=== PATIENT | female | born 1985 | race Caucasian/White ===

== ENCOUNTER 2016-08-25 02:17 | Emergency (ER) | payer OTHER ==
[~2016-08-25] VITALS: Ht 152.4 cm; Wt 55.3 kg
[~2016-08-25 02:17] MED LIST: AUGMENTIN 875 M1 TAB PO; PREDNISONE10 MG PO; TESSALON PERLE100 MG PO; VISTARIL25 MG PO
[2016-08-25 02:38] VITALS: BP 140/81
--- NOTE | 2016-08-25 02:41 | ED INFLUENZA/URI COMPLAINT ---
History of Present Illness General Chief Complaint: Ear Complaints Stated Complaint: BILAT EAR PAIN Source: patient Exam Limitations: no limitations Vital Signs & Intake/Output Vital Signs & Intake/Output Vital Signs Date Time Temp Pulse Resp B/P Pulse O2 O2 Flow FiO2 Ox Delivery Rate 08/25 0238 97.5 86 16 140/81 100 Room Air Room Air Allergies Coded Allergies: cat dander (CONJUCTIVAL SWELLING 09/19/15) Reconcile Medications AMOXICILLIN/POTASSIUM CLAV (Augmentin 875-125 Tablet) 875 MG/125 MG TAB 1 TAB PO BID OTITIS MEDIA Amoxicillin/Potassium Clav (Augmentin 875-125 Tablet) 875 MG-125 MG TABLET 1 TAB PO BID ear infection Benzonatate (Tessalon Perle) 100 MG SGL 1-2 TAB PO Q8P PRN COUGH Hydroxyzine Pamoate (Vistaril) 25 MG CAP 1 TAB PO Q6P PRN ITCH Ibuprofen 600 MG TABLET 1 TAB PO TID PRN pain with food Prednisone 10 MG TAB 0 TAB PO DAILY CONTACT DERMITIS TAKE 4 PILLS A DAY FOR 3 DAYS THEN TAKE 3 PILLS A DAY FOR 3 DASY THEN TAKE 2 PILLS A DAY FOR 3 DAYS THEN TAKE 1 PILL A DAY FOR 3 DAYS Triage Note: 30YO FEMALE TO TRIAGE W/CO BILAT EAR PAIN X 2 D Triage Nurses Notes Reviewed? yes Onset: Gradual Duration: day(s): Timing: recent history Severity: moderate Prior Episodes/Possible Cause: occassional episodes Modifying Factors: Improves With: rest. Associated Symptoms: ear pain was sinus congestion HPI: 30-year-old woman, history of cigarette smoking, presents with bilateral ear pain for the past 2 days. She notes also sinus congestion, sneezing, coughing, mild sore throat. She has no fever, shortness of breath, wheezing. She is otherwise well and has no other concerns. Past History Medical History Any Pertinent Medical History? see below for history Respiratory: asthma Psychiatric: anxiety Surgical History Surgical History: non-contributory Psychosocial History Who do you live with Spouse What is your primary language Eritrean Family History Hx Contributory? No Review of Systems Review of Systems Constitutional: Reports: no symptoms. EENTM: Reports: no symptoms. Respiratory: Reports: no symptoms. Cardiovascular: Reports: no symptoms. GI: Reports: no symptoms. Genitourinary: Reports: no symptoms. Musculoskeletal: Reports: no symptoms. Skin: Reports: no symptoms. Neurological/Psychological: Reports: no symptoms. Hematologic/Endocrine: Reports: no symptoms. Immunologic/Allergic: Reports: no symptoms. All Other Systems: Reviewed and Negative Physical Exam Physical Exam General Appearance: well developed/nourished, mild distress Head: atraumatic, normal appearance Eyes: Bilateral: normal appearance. Ears, Nose, Throat: nasal congestion, nasal drainage, pharyngeal erythema, mild erythema behind both tympanic membranes. Neck: normal inspection, supple, full range of motion Respiratory: normal breath sounds, chest non-tender, no respiratory distress, quiet respiration, lungs clear Cardiovascular: regular rate/rhythm Gastrointestinal: normal bowel sounds Back: normal inspection Extremities: normal inspection Neurologic/Psych: no motor/sensory deficits, awake, alert, oriented x 3 Skin: intact, normal color, warm/dry Core Measures Severe Sepsis Present: No Septic Shock Present: No Progress Differential Diagnosis: otitis, pharyngitis, sinusitis Plan of Care: Prescription for Augmentin and ibuprofen given. I also advised a trial of Afrin , hot steamy shower, and antihistamines. Close follow-up encouraged. Initial ED EKG: none Departure Departure Disposition: HOME OR SELF CARE Condition: Stable Clinical Impression Primary Impression: Bilateral otitis media Referrals: HAIDER HAAS DO (PCP/Family) Departure Forms: Customer Survey General Discharge Information Prescriptions: Current Visit Scripts Amoxicillin/Potassium Clav (Augmentin 875-125 Tablet) 1 TAB PO BID #20 TAB Ibuprofen 1 TAB PO TID PRN pain #30 TAB with food
[2016-08-25] MEDS ORDERED: IBUPROFEN600 M1 PO (02:42)
[2016-08-25] MEDS ORDERED: AUGMENTIN 875-1 EACH PO (02:42)
== END 2016-08-25 02:51 ==
LOC: ERH 02:17
DX: H66.93 Otitis media, unspecified, bilateral (principal)

== ENCOUNTER 2017-12-04 22:59 | Observation (INO) | payer OTHER ==
[~2017-12-04] VITALS: Ht 170.2 cm; Wt 68.0 kg
[~2017-12-04 22:59] MED LIST changes: +AUGMENTIN 875-1 EACH PO; +IBUPROFEN600 M1 PO
--- NOTE | 2017-12-04 23:13 | ED GI/GU/ABDOMINAL COMPLAINT ---
See Addendum History of Present Illness General Chief Complaint: Female Urogenital Problems Stated Complaint: HEAVY VAGINAL BLEEDING,MEDICAL 2WKS AGO Source: patient, family Exam Limitations: no limitations Vital Signs & Intake/Output Vital Signs & Intake/Output Vital Signs Date Time Temp Pulse Resp B/P B/P Pulse O2 O2 Flow FiO2 Mean Ox Delivery Rate 12/04 2320 87 147/81 12/04 2307 96.2 86 16 145/91 99 Room Air Allergies Coded Allergies: cat dander (CONJUCTIVAL SWELLING 09/19/15) Reconcile Medications AMOXICILLIN/POTASSIUM CLAV (Augmentin 875-125 Tablet) 875 MG/125 MG TAB 1 TAB PO BID OTITIS MEDIA Amoxicillin/Potassium Clav (Augmentin 875-125 Tablet) 875 MG-125 MG TABLET 1 TAB PO BID ear infection Benzonatate (Tessalon Perle) 100 MG SGL 1-2 TAB PO Q8P PRN COUGH Hydroxyzine Pamoate (Vistaril) 25 MG CAP 1 TAB PO Q6P PRN ITCH Ibuprofen 600 MG TABLET 1 TAB PO TID PRN pain with food Prednisone 10 MG TAB 0 TAB PO DAILY CONTACT DERMITIS TAKE 4 PILLS A DAY FOR 3 DAYS THEN TAKE 3 PILLS A DAY FOR 3 DASY THEN TAKE 2 PILLS A DAY FOR 3 DAYS THEN TAKE 1 PILL A DAY FOR 3 DAYS Triage Note: PER PT 2 WEEKS AGO CO HEAVY BLEEDING SINCE YESTERDAY, REPORTS WAS BLEEDING THEN DOWN TO SPOTTING 2 DAYS AGO BUT NOW HEAVY Triage Nurses Notes Reviewed? yes ? N Is pt currently ? No HPI: Patient had a medical 2 weeks ago. Patient states that she received some pills at [facility]. Since then she has been having occasional spotting and slight pelvic cramps. Yesterday she began having vaginal bleeding. The bleeding increased over the day today. Today she has gone through 7 pads and has gone through one pad in the past 2 hours. Patient now feeling slightly lightheaded when she stands up. Patient continues to have pelvic cramps and at their worst a 7 out of 10 however currently there are 3 out of 10. Past History Travel History Traveled to [place] past 21 day No Medical History Any Pertinent Medical History? see below for history Neurological: NONE EENT: NONE Cardiovascular: NONE Respiratory: asthma Gastrointestinal: NONE Hepatic: NONE Renal: NONE Musculoskeletal: NONE Psychiatric: anxiety Endocrine: NONE Surgical History Surgical History: non-contributory Psychosocial History Who do you live with Spouse What is your primary language Polish Tobacco Use: Current Daily Use Daily Tobacco Use Amount/Type: => 5 Cigarettes daily ETOH Use: occasional use Illicit Drug Use: denies illicit drug use Family History Hx Contributory? No Review of Systems Review of Systems Constitutional: Reports: no symptoms. EENTM: Reports: no symptoms. Respiratory: Reports: no symptoms. Cardiovascular: Reports: no symptoms. GI: Reports: see HPI. Genitourinary: Reports: see HPI. Musculoskeletal: Reports: no symptoms. Skin: Reports: no symptoms. Neurological/Psychological: Reports: no symptoms. Hematologic/Endocrine: Reports: no symptoms. Immunologic/Allergic: Reports: no symptoms. All Other Systems: Reviewed and Negative Physical Exam Physical Exam General Appearance: well developed/nourished, alert, awake, anxious, mild distress Head: atraumatic, normal appearance Eyes: Bilateral: PERRL, EOMI. Ears, Nose, Throat, Mouth: hearing grossly normal, moist mucous membrane Neck: normal inspection, supple, full range of motion Respiratory: normal breath sounds, chest non-tender, no respiratory distress, lungs clear Cardiovascular: regular rate/rhythm, normal peripheral pulses Gastrointestinal: normal bowel sounds, soft, non-tender, no organomegaly Back: normal inspection, normal range of motion Extremities: normal range of motion Neurologic/Psych: no motor/sensory deficits, awake, alert, oriented x 3, normal gait, normal mood/affect Skin: intact, normal color, warm/dry Core Measures ACS in differential dx? No Sepsis Present: No Sepsis Focused Exam Completed? No Progress Differential Diagnosis: RETAINED PRODUCTS, PASSAGE OF PRODUCTS OF CONCEPTION Plan of Care: Orders Procedure Date/time Status URINALYSIS 12/04 2322 Complete MISTAKE 12/04 2309 Active HUMAN BETA HCG SCREEN 12/04 230 Active COMPREHENSIVE METABOLIC PANEL 12/04 2309 Active CBC WITHOUT DIFFERENTIAL 12/04 230 Complete Current Medications Sig/Jayda Start time Last Medication Dose Stop Time Status Admin Sodium Chloride 1,000 ML BOLUS ONE 12/04 2345 UNVr (Normal Saline 0.9%) 12/05 0044 Sodium Chloride 1,000 ML BOLUS ONE 12/04 2315 UNVr 12/04 (Normal Saline 0.9%) 12/05 0014 2347 Laboratory Tests 12/04/17 2345: Sodium Pending, Potassium Pending, Chloride Pending, Carbon Dioxide Pending, Anion Gap Pending, BUN Pending, Creatinine Pending, BUN/Creatinine Ratio Pending , Glucose Pending, Calcium Pending, Total Bilirubin Pending, AST Pending, ALT Pending, Alkaline Phosphatase Pending, Total Protein Pending, Albumin Pending, Globulin Pending, Albumin/Globulin Ratio Pending, Total Beta HCG Pending, CBC w Diff NO MAN DIFF REQ, RBC 4.22, MCV 90.8, MCH 30.8, MCHC 33.9, RDW 13.6, MPV 7.4 , Gran % 49.9, Lymphocytes % 32.5, Monocytes % 9.6 H, Eosinophils % 7.4 H, Basophils % 0.6, Absolute Granulocytes 4.2, Absolute Lymphocytes 2.7, Absolute Monocytes 0.8 H, Absolute Eosinophils 0.6, Absolute Basophils 0.1 12/04/17 2325: Urine Color BLDY H, Urine Clarity CLDY H, Urine pH 6.5, Ur Specific [place] 1.010, Urine Protein 100 H, Urine Ketones NEG, Urine Nitrite POS H, Urine Bilirubin NEG, Urine Urobilinogen 0.2, Ur Leukocyte Esterase SMALL H, Ur Microscopic SEDIMENT EXAMINED, Urine RBC PACKD H, Urine WBC 1-3 H, Ur Epithelial Cells MOD H, Urine Bacteria MOD H, Urine Hemoglobin LARGE H, Urine Glucose NEG Initial ED EKG: none Hand-Off Endorsed To: Rajeev Gomez MD Endorsed Time: 11 Pending: labs Comments: No changes with blood pressure between laying sitting and standing however the pulse did increase from 87 up to 102. Departure Departure Disposition: STILL A PATIENT Condition: Stable Clinical Impression Primary Impression: Vaginal bleeding Referrals: Cris Fischer DO (PCP/Family) Departure Forms: Customer Survey General Discharge Information
[2017-12-04 23:51] LABS: ABSOLUTE BASOPHIL COUNT 0.1 /CUMM (0.0-0.2); ABSOLUTE EOSINOPHIL COUNT 0.6 /CUMM (0.0-0.7); ABSOLUTE GRANULOCYTE CT 4.2 /CUMM (1.4-6.5); ABSOLUTE LYMPH COUNT 2.7 /CUMM (1.2-3.4); ABSOLUTE MONOCYTE COUNT 0.8 /CUMM (0.10-0.60); BASOPHIL % 0.6 % (0.0-2.0); EOSINOPHIL % 7.4 % (0-5); GRANULOCYTE % 49.9 % (42.2-75.2); HEMATOCRIT 38.3 % (37-47); MEAN CORPUSCULAR HGB 30.8 PG (27.0-31.0); MEAN CORPUSCULAR HGB CONC 33.9 G/DL (33.0-37.0); MEAN CORPUSCULAR VOLUME 90.8 FL (81.0-99.0); MEAN PLATELET VOLUME 7.4 FL (7.4-10.4); PLATELET COUNT 306 /CUMM (130-400); RBC DISTRIBUTION WIDTH 13.6 % (11.5-14.5); RED BLOOD CELL CT 4.22 /CUMM (4.20-5.40); WHITE BLOOD CELL COUNT 8.3 /CUMM (4.8-10.8)
[2017-12-05 07:53] VITALS: BP 111/75
--- NOTE | 2017-12-05 10:03 | ULTRASOUND REPORT ---
EXAMINATION: ULTRASOUND OF THE PELVIS CLINICAL INFORMATION: Medical 2 weeks ago. Now with cramping, bleeding. Presumptive diagnosis of incomplete . COMPARISON: None TECHNIQUE: Transabdominal and transvaginal pelvic ultrasound. A transvaginal study was performed in addition to the transabdominal study which did not yield an adequate examination of the uterus and ovaries due to incomplete distention of the bladder and superimposed distended gas-filled loops of bowel. FINDINGS: Based on the patient's last menstrual period of 10/09/2017, a 8 week 1 day gestation is expected with an estimated date of delivery of 07/16/2018. However, the patient has undergone interval medical 2 weeks ago. Uterus: The uterus is anteverted and normal in size and appearance, measuring 8.3 x 4.0 x 5.0 cm. The endometrial stripe is mildly heterogeneous and normal in thickness, measuring 0.7-0.8 cm in thickness. Trace amount of endometrial free fluid is seen. No abnormal hypervascularity of the endometrium is seen and no definite retained products of conception are seen. No focal myometrial mass is seen. The cervical length is normal measuring 3.2 cm. Ovaries: The ovaries bilaterally are visualized and appear normal, with the right ovary measuring 3.6 x 2.1 x 2.4 cm (9.8 mL volume) and the left ovary measuring 3.1 x 2.7 x 2.6 cm (6.3 mL volume). Of note, the left ovary was not well visualized on the transvaginal examination and the measurements are based on transabdominal imaging. Parenchymal detail of the left ovary is limited. Normal arterial and venous flow to both ovaries is seen. Other: No adnexal mass or free fluid collection seen. IMPRESSION: 1. The endometrial stripe appears slightly heterogeneous but is normal in thickness with no evidence of retained products of conception. Nonspecific small volume of endometrial free fluid is noted. 2. Uterus and ovaries otherwise unremarkable.
[2017-12-05] MEDS ORDERED: METHERGINE0.2 M1 PO (10:52)
== END 2017-12-05 11:36 ==
LOC: ERH 22:59 → ERHI 12-05 01:41
PROVIDERS: Emergency Medicine
DX: N93.8 Other specified abnormal uterine and vaginal bleeding (principal); Z98.890 Other specified postprocedural states; J45.909 Unspecified asthma, uncomplicated; Z72.0 Tobacco use
CPT/HCPCS: 6090; 76817; 81001; 96360; 96361; G0378; J1885